=== PATIENT | male | born 1965 | race Caucasian/White ===

== ENCOUNTER 2016-10-17 15:01 | Emergency (ER) | payer SELFPAY | END 2016-10-17 19:30 | disposition home or self-care (01) | LOC: FER 15:01 | DX: S60.222A Contusion of left hand, initial encounter (principal); F17.210 Nicotine dependence, cigarettes, uncomplicated; W17.89XA Other fall from one level to another, initial encounter; Y92.009 Unspecified place in unspecified non-institutional (private) residence as the place of occurrence of the external cause | CPT/HCPCS: 73130; 99283 ==

== ENCOUNTER 2021-09-08 08:50 | Emergency (ER) | payer OTHER ==
[~2021-09-08 08:50] MED LIST: NEURONTIN300 MG PO
[2021-09-08 10:00] LABS: BILIRUBIN NEGATIVE (NEGATIVE); BLOOD NEGATIVE Ery/uL (NEGATIVE); CLARITY CLEAR (CLEAR); GLUCOSE (U) NORMAL (NORMAL); LEUKOCYTES NEGATIVE Leu/uL (NEGATIVE); NITRITE NEGATIVE (NEGATIVE); PROTEIN NEGATIVE (NEGATIVE); UROBILINOGEN 0.2 mg/dL (0.2-1.0); pH 6.5 (5.0-9.0)
[2021-09-08 10:05] LABS: COLOR STRAW (YELLOW)
== END 2021-09-08 11:03 | disposition home or self-care (01) ==
LOC: FER 08:50
PROVIDERS: Emergency Medicine
DX: S29.012A Strain of muscle and tendon of back wall of thorax, initial encounter (principal); S20.211A Contusion of right front wall of thorax, initial encounter; Z88.0 Allergy status to penicillin; W19.XXXA Unspecified fall, initial encounter; Z28.310 Unvaccinated for COVID-19
CPT/HCPCS: 71101; 81003; 93005